=== PATIENT | female | born 1945 | race Caucasian/White ===

== ENCOUNTER → 2016-11-03 | Outpatient (CLI) | payer MEDICARE, OTHER ==
[~2016-11-03] MED LIST: ASPIRIN 81M81 MG/TA2 PO; B-121000 MCG PO; BENEFIBER PO; COZAAR 50MG50 MG/TAB PO; DUO-KAPS1 CAP PO; GLUCOSAMINE & C1 CA1 PO; HAIR,SKIN AND NAILS PO; HCTZ12.5TAB PO; HYZAAR 50-12.1 UDTAB PO; K-DUR 2020 MEQ PO; LOPRESSOR 225 MG/TAB PO; LUTEIN20 M1 PO; LUTEIN20 MG PO; MELATONIN5 M1 PO; NATURE'S BLE1000 MCG PO; PRILOSEC 20MG20 MG PO; PRINZIDE 25 MG-1 TAB PO; SYNTHROID0.075 MG/T; TOPROL XL 50MG50 MG PO; TUMERIC PO; VITAMIN B122500 MCG PO; VITAMIN D31000 IU PO; ZYLOPRIM 100MG100 MG PO; [UNRECOGNIZED DRUG - OTHER] PO
== END ==
LOC: COL.RAD 10:00
DX: K44.9 Diaphragmatic hernia without obstruction or gangrene (principal); K21.9 Gastro-esophageal reflux disease without esophagitis; Z98.84 Bariatric surgery status